=== PATIENT | male | born 1990 | race Hispanic/Latino ===

== ENCOUNTER 2017-06-22 16:18 | Emergency (ER) | payer SELFPAY | END 2017-06-22 16:51 | disposition home or self-care (01) | LOC: EDH 16:18 | DX: N48.89 Other specified disorders of penis (principal) | CPT/HCPCS: 99281 ==

== ENCOUNTER 2019-02-27 12:29 | Emergency (ER) | payer OTHER ==
[2019-02-27] MEDS ORDERED: DEXAMETHASONE SOD PHOSPHATE 10MG/ML 1ML VIAL ONE (13:07)
[2019-02-27] MEDS ORDERED: KETOROLAC TROMETHAMINE 60 MG/2 ML VIAL ONE (13:08)
[2019-02-27] MEDS ORDERED: LIDOCAINE 5% TOPICAL PATCH TP ONE (13:08)
== END 2019-02-27 13:45 | disposition home or self-care (01) ==
LOC: EDH 12:29
DX: M54.5 Low back pain (principal); Z72.0 Tobacco use
CPT/HCPCS: 96372 ×2; 99284; J1100; J1885

== ENCOUNTER 2019-07-10 00:34 | Emergency (ER) | payer OTHER | END 2019-07-10 03:50 | disposition left against medical advice (07) | LOC: EDH 00:34 | DX: R50.9 Fever, unspecified (principal); J02.9 Acute pharyngitis, unspecified; Z53.21 Procedure and treatment not carried out due to patient leaving prior to being seen by health care provider ==

== ENCOUNTER 2019-11-11 05:12 | Emergency (ER) | payer OTHER ==
[2019-11-11] MEDS ORDERED: KETOROLAC TROMETHAMINE 30MG/ML ONE (05:40)
[2019-11-11] MEDS ORDERED: CEFTRIAXONE SODIUM 1 GM ONE (06:59)
== END 2019-11-11 07:32 | disposition home or self-care (01) ==
LOC: EDH 05:12
DX: N20.0 Calculus of kidney (principal); R82.71 Bacteriuria
CPT/HCPCS: 36415; 74176; 80053; 81001; 83690; 85025; 87088; 96374; 96375; 99284; J0696; J1885